=== PATIENT | female | born 2000 | race American Indian/Alaskan Native ===

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

== ENCOUNTER 2022-04-18 05:24 | Inpatient (IN) | payer MEDICAID ==
[2022-04-18 05:58] LABS: Hematocrit 36.7 % (30.3-42.9); Hemoglobin 12.1 gm/dl (10.1-14.3); Mean Corpuscular HGB Conc 33 % (30-34); Mean Corpuscular Volume 79 fl (79-97); Platelet Count 181 K/mm3 (140-440); Red Blood Count 4.68 M/mm3 (3.65-5.03); Red Cell Distribution Width 16.5 % (13.2-15.2)
[2022-04-18] MEDS ORDERED: OXYTOCIN DRIP 30,000 MILLIUNITS/500 ML BAG IV ONE (06:00)
[2022-04-18] MEDS ORDERED: LIDOCAINE (2%) 20 MG/1 ML VIAL 20 ML MDV INFILTRATI ONE (06:06)
[2022-04-18] MEDS ORDERED: METHYLERGONOVINE MALEATE 0.2 MG/ML VIAL IM PRN (06:45)
[2022-04-18] MEDS ORDERED: LOPERAMIDE 2 MG CAP PO PRN (06:45)
[2022-04-18] MEDS ORDERED: CARBOPROST TROMETHAMINE 250 MCG/1 ML INJ IM PRN (06:45)
[2022-04-18] MEDS ORDERED: miSOPROStol 200 MCG TAB PR PRN (06:45)
[2022-04-18] MEDS ORDERED: OXYTOCIN 10 UNIT/1 ML INJ IM PRN (06:45)
[2022-04-18] MEDS ORDERED: NalbUPHINE 10 MG/1 ML INJ IV PRN (06:45)
[2022-04-18] MEDS ORDERED: LIDOCAINE (2%) 20 MG/1 ML VIAL 20 ML MDV INFILTRATI NR (06:45)
--- NOTE | 2022-04-18 06:49 | Procedure Note ---
OB Delivery Note - Delivery Date of Delivery: 04/18/22 Surgeon: FATOU CARTER Estimated blood loss: other (250mL) - Vaginal Delivery presentation: vertex Delivery position: OA Delivery monitor: external FHT, external uterine Route of delivery: Delivery placenta: spontaneous (intact) Delivery cord: nuchal cord (x2, loose released over head ) Episiotomy: none Delivery laceration: 2nd degree Delivery repair: vicryl (Usual fashion) Anesthesia: local - A at 1 minute: 9 at 5 minutes: 9 Gender: Male (6lb 6oz)
--- NOTE | 2022-04-18 06:54 | History and Physical Report ---
History of Present Illness Date of examination: 04/18/22 Chief complaint: Labor 38 weeks Past History Past Medical History: no pertinent history Past Surgical History: no surgical history Social history: no significant social history - Obstetrical History : 1 Medications and Allergies Allergies Allergy/AdvReac Type Severity Reaction Status Date / Time No Known Allergies Allergy Verified 04/17/17 03:10 Home Medications Medication Instructions Recorded Confirmed Last Taken Type Lactulose 5 gm PO BID #60 ml 04/17/17 Unknown Rx Active Meds: Active Medications Acetaminophen (Acetaminophen 325 Mg Tab) 650 mg PO Q4H PRN PRN Reason: Pain, Mild (1-3) Carboprost Tromethamine (Carboprost Tromethamine 250 Mcg/1 Ml Inj) 250 mcg IM ONCE PRN PRN Reason: Uterine Bleeding Ephedrine Sulfate (Ephedrine Sulfate 50 Mg/1 Ml Inj) 10 mg IV Q2M PRN PRN Reason: Hypotension Fentanyl (Fentanyl 100 Mcg/2 Ml Inj) 100 mcg IV Q2H PRN PRN Reason: Pain,Severe (7-10) LABOR PAIN Lactated Ringer's (Lactated Ringers) 1,000 mls @ 125 mls/hr IV DIRECT AURELIA Oxytocin/Sodium Chloride (Pitocin/Ns 30 Unit/500ml) 30 units in 500 mls @ 40 mls/hr IV TITR AURELIA; Protocol Lidocaine (Lidocaine (2%) 20 Mg/1 Ml Vial 20 Ml Mdv) 20 ml INFILTRATI ONCE ONE Stop: 04/18/22 06:46 Loperamide HCl (Loperamide 2 Mg Cap) 2 mg PO ONCE PRN PRN Reason: give with Hemabate Methylergonovine Maleate (Methylergonovine Maleate 0.2 Mg/Ml Vial) 0.2 mg IM ONCE PRN PRN Reason: Uterine Bleeding Misoprostol (Misoprostol 200 Mcg Tab) 800 mcg MI ONCE PRN PRN Reason: Uterine Bleeding Nalbuphine HCl (Nalbuphine 10 Mg/1 Ml Inj) 10 mg IV Q2H PRN PRN Reason: Pain, Moderate (4-6) Oxytocin (Oxytocin 10 Unit/1 Ml Inj) 10 unit IM ONCE PRN PRN Reason: Uterine Bleeding - Vital Signs Vital signs: Vital Signs Pulse Pulse Ox 99 H 99 04/18/22 05:39 04/18/22 05:39 Temp Pulse Resp BP Pulse Ox 94 H 126/68 100 04/18/22 06:49 04/18/22 06:49 04/18/22 06:49 - Physical Exam Breasts: Positive: deferred Cardiovascular: Regular rate Lungs: Positive: Normal air movement Abdomen: Positive: normal appearance, soft. Negative: distention, tenderness, guarding Genitourinary (Female): Positive: normal external genitalia, normal perenium Vulva: both: normal Results Result Diagrams: 04/18/22 05:40 Abnormal lab results 04/18/22 Range/Units 05:40 WBC 11.7 H (4.5-11.0) K/mm3 MCH 26 L (28-32) pg RDW 16.5 H (13.2-15.2) % All other labs normal. Assessment and Plan - Patient Problems (1) 38 weeks gestation of Current Visit: Yes Status: Acute (2) Active labor at term Current Visit: Yes Status: Acute
[2022-04-18] MEDS ORDERED: ePHEDrine SULFATE 50 MG/1 ML INJ IV PRN (07:00)
[2022-04-18] MEDS ORDERED: LACTATED RINGERS 1,000 ML IV SCH (07:00)
[2022-04-18] MEDS ORDERED: OXYTOCIN DRIP 30 UNITS/500 ML BAG IV SCH (07:00)
[2022-04-18] MEDS ORDERED: fentaNYL 100 MCG/2 ML INJ IV PRN (07:00)
[2022-04-18] MEDS ORDERED: ACETAMINOPHEN 325 MG TAB PO PRN (07:30)
[2022-04-18 08:21] LABS: Hematocrit 35.9 % (30.3-42.9); Hemoglobin 11.7 gm/dl (10.1-14.3)
[2022-04-18] MEDS ORDERED: HYDROcodone/ACETAMINOPHEN 5-325 MG TAB PO PRN (12:09)
[2022-04-18] MEDS ORDERED: diphenhydrAMINE 25 MG CAP PO PRN (12:09)
[2022-04-18] MEDS ORDERED: PROMETHAZINE 25 MG RECT SUPP PR PRN (12:09)
[2022-04-18] MEDS ORDERED: PROMETHAZINE 25 MG TAB PO PRN (12:09)
[2022-04-18] MEDS ORDERED: LANOLIN/ZINC/DIMETHICONE (LANSINOH) 7 GM TP PRN (12:09)
[2022-04-18] MEDS ORDERED: MAGNESIUM HYDROXIDE (MOM) ORAL LIQD UDC PO PRN (12:09)
[2022-04-18] MEDS ORDERED: WITCH HAZEL/ GLYCERIN PAD TP PRN (12:09)
[2022-04-18] MEDS ORDERED: ONDANSETRON 4 MG/2 ML INJ IV PRN (12:09)
[2022-04-18 15:40] LABS: Hepatitis C Virus Antibody Non-Reactive (NonReactive)
[2022-04-18 16:27] LABS: Bilirubin,Urine NEG (Negative); Blood,Urine LG (Negative); Color,Urine Yellow (Yellow); Protein,Urine <15 mg/dL mg/dL (Negative); Urobilinogen,Urine < 2.0 mg/dL (<2.0)
[2022-04-18 16:31] LABS: Mucus,Urine FEW /HPF
[2022-04-18 16:32] LABS: Amphetamine Screen,Urine Negative; Benzodiazepines Screen,Urine Negative; Cannabinoid Screen,Urine Negative; Cocaine Screen,Urine Negative; Methadone Screen,Urine Negative; Opiate Screen,Urine Negative; RBC,Urine > 182.0 /HPF (0.0-6.0)
[2022-04-18 21:27] LABS: Hematocrit 33.6 % (30.3-42.9); Hemoglobin 10.8 gm/dl (10.1-14.3)
[2022-04-18] MEDS: DOCUSATE SODIUM 100 MG CAP PO SCH (22:03)
[2022-04-18] MEDS: FERROUS SULFATE 325 MG TAB PO SCH (22:03)
[2022-04-19] MEDS: IBUPROFEN 600 MG TAB PO SCH ×3 (01:24→09:53)
[2022-04-19] MEDS: FERROUS SULFATE 325 MG TAB PO SCH ×2 (09:52→22:01)
[2022-04-19] MEDS: DOCUSATE SODIUM 100 MG CAP PO SCH ×2 (09:52→22:03)
[2022-04-19] MEDS: PRENATAL VIT27-FE FUMARATE-FOLIC ACID VIT TAB PO SCH (09:53)
[2022-04-19] MEDS ORDERED: BENZOCAINE/MENTHOL 20/0.5% TOP SPRAY 56 GM TP PRN (10:06)
[2022-04-20] MEDS: IBUPROFEN 600 MG TAB PO SCH ×2 (00:11→06:33)
--- NOTE | 2022-04-20 08:25 | Progress Note ---
Assessment and Plan A: PPD#2 s/p at term P: Routine care Discharge home today Subjective - Subjective Date of service: 04/20/22 Principal diagnosis: PPD#2 s/p at term Interval history: No overnight events Patient reports: appetite normal, voiding normally, pain well controlled, ambulating normally : doing well Objective - Vital Signs Latest vital signs: Vital Signs Temp Pulse Resp BP BP Pulse Ox 04/20/22 01:15 98.5 F 73 20 108/65 91 04/19/22 16:35 98 F 89 20 100/64 99 04/19/22 09:20 98 F 91 H 20 98/61 99 Intake and Output 04/19/22 04/20/22 04/20/22 22:59 06:59 14:59 Intake Total 480 Balance 480 Intake: Oral 480 Other: Total, Intake Amount 240 # Voids Void 1 1 - Exam Breasts: Present: deferred Abdomen: Present: soft Uterus: Present: fundal height at umbilicus Extremities: Present: normal
--- NOTE | 2022-04-20 08:30 | Discharge Summary ---
Providers - Providers Date of Admission: 04/18/22 06:49 Date of discharge: 04/20/22 Attending physician: FAVIO REHMAN Primary care physician: FAVIO REHMAN Hospitalization Reason for admission: active labor Delivery: Procedure details: Please see delivery note Episiotomy: none Laceration: 2nd degree Other procedures: none complications: none Discharge diagnosis: IUP at term delivered [place] baby: male Hospital course: This patient was admitted in active labor at term and went on to have a spontaneous vaginal delivery which she tolerated well. Her course was uncomplicated and she met discharge criteria on day #2. She will follow-up in the office in 4 weeks. Condition at discharge: Stable Disposition: 01 HOME / SELF CARE / HOMELESS - Discharge Diagnoses (1) Term of male Status: Acute (2) Active labor at term Status: Acute Plan - Discharge Medications Prescriptions: Ibuprofen [Motrin] 600 mg PO Q6H PRN #30 tablet PRN Reason: Pain - Provider Discharge Summary Activity: routine, no sex for 6 weeks, no heavy lifting 4 weeks, no strenuous exercise Diet: routine Instructions: routine Additional instructions: [] Smoking cessation referral if applicable(refer to patient education folder for contact #) [] Refer to [facility] Booklet Call your doctor immediately for: * Fever > 100.5 * Heavy vaginal bleeding ( >1 pad per hour) * Severe persistent headache * Shortness of breath * Reddened, hot, painful area to leg or breast * Drainage or odor from incision. * Keep incision clean and dry at all times and follow doctor's instructions regarding bathing/showering - Follow up plan Follow up: FLOREC[facility] [employer] [Advanced Practice Nurse] - 6 Weeks (Please schedule your son circumcision before he is 1 month old)
[2022-04-20] MEDS: PRENATAL VIT27-FE FUMARATE-FOLIC ACID VIT TAB PO SCH (11:01)
[2022-04-20] MEDS: FERROUS SULFATE 325 MG TAB PO SCH (11:01)
[2022-04-20] MEDS: DOCUSATE SODIUM 100 MG CAP PO SCH (11:02)
[2022-04-20 14:47] VITALS: BP 116/69
== END 2022-04-20 14:58 | disposition home or self-care (01) | DRG 775 ==
LOC: TRG 05:24 → LD 05:36 → TRG 06:49 → LD 06:49 → OB 09:25
PROVIDERS: ADMIT Obstetrics & Gynecology; ATTEND Obstetrics & Gynecology
PROC: 10E0XZZ Delivery of Products of Conception, External Approach (ICD-10-PCS; principal; 2022-04-18)
PROC: 0KQM0ZZ Repair Perineum Muscle, Open Approach (ICD-10-PCS; 2022-04-18)
DX: O69.81X0 Labor and delivery complicated by cord around neck, without compression, not applicable or unspecified (principal); Z37.0 Single live birth; O70.1 Second degree perineal laceration during delivery; Z3A.38 38 weeks gestation of pregnancy
CPT/HCPCS: 36415; 80307; 81001; 85014; 85018; 85027; 86592; 86706; 86762; 86803; 86850; 86900; 86901; 87806; G0378; U0003